=== PATIENT | male | born 1960 | race African-American/Black ===

== ENCOUNTER 2020-05-13 13:44 | Emergency (ER) | payer OTHER ==
[~2020-05-13] VITALS: Ht 188 cm; Wt 82.9 kg
[2020-05-13] MEDS ORDERED: SODIUM CHLORIDE FLUSH 10ML SYR IVF ONE (14:30)
[2020-05-13 14:38] LABS: BASOPHILS % (AUTO) 0 % (0-1); EOSINOPHILS % (AUTO) 0 % (1-7); LYMPHOCYTES % (AUTO) 16 % (22-44); MEAN CORPUSCULAR HEMOGLOBIN 26.4 pg (27.5-34.5); MEAN CORPUSCULAR HGB CONC 32.6 g/dL (33.2-36.2); MEAN PLATELET VOLUME 9.4 fL (7.4-10.4); MONOCYTES % (AUTO) 10 % (2-9); NEUTROPHILS % (AUTO) 73 % (42-75); RED BLOOD COUNT 5.49 x10^6/uL (4.38-5.82); RED CELL DISTRIBUTION WIDTH 14.1 % (9.4-14.8)
[2020-05-13 14:46] LABS: ALANINE AMINOTRANSFERASE 22 U/L (12-78); ALBUMIN 3.6 g/dL (3.4-5.0); ANION GAP 4 mmol/L (5-15); CALCIUM 9.4 mg/dL (8.5-10.1); CHLORIDE 105 mmol/L (98-107); CREATININE 1.53 mg/dL (0.7-1.3)
[2020-05-13 14:48] LABS: ALKALINE PHOSPHATASE 58 U/L (45-117); BILIRUBIN,TOTAL 0.5 mg/dL (0.2-1.0)
[2020-05-13 15:25] LABS: MD SCAN; PLATELET COUNT 193 x10^3/uL (130-400)
[2020-05-13] MEDS ORDERED: ONDANSETRON 2MG/ML, 2ML ONE (17:44)
[2020-05-13] MEDS ORDERED: LISI-170 PO (17:49)
--- NOTE | 2020-05-13 17:50 | NUR ---
PIV STARTED AND PT MEDICATED PER SEP. PT TO CT AT THIS TIME.
[2020-05-13] MEDS ORDERED: ATOR40TA78 PO (17:51)
[2020-05-13] MEDS ORDERED: LISI40TA PO (17:52)
[2020-05-13] MEDS ORDERED: FENO145T32 PO (17:54)
[2020-05-13] MEDS ORDERED: ASCO500C2 PO (17:55)
[2020-05-13] MEDS ORDERED: TADA5TAB2 PO (17:56)
[2020-05-13] MEDS ORDERED: ONDANSETRON 2MG/ML, 2ML IVPush ONE (18:00)
[2020-05-13] MEDS ORDERED: SODIUM CHLORIDE 0.9% 1,000ML IVBOLUS ONE ×2 (18:00→20:30)
[2020-05-13] MEDS ORDERED: OMNIPAQUE 350 MG/ML, 100ML BOTTLE ONE (18:00)
--- NOTE | 2020-05-13 18:55 | NUR ---
BEDSIDE REPORT FROM SATISH ARMENDARIZ ASSUMING CARE OF PT AT THIS TIME PT EDUCATED ON NEED FOR URINE SAMPLE, VERBALIZES UNDERSTANDING
--- NOTE | 2020-05-13 19:55 | NUR ---
PT UNABLE TO PROVIDE URINE SAMPLE AT THIS TIME. REQ WATER. WILL PROVIDE THIS
--- NOTE | 2020-05-13 20:08 | NUR ---
2ND LITER STARTED, PT REINFORMED OF NEED FOR URINE
--- NOTE | 2020-05-13 20:33 | NUR ---
URINE WALKED TO LAB
[2020-05-13 20:36] LABS: MICROSCOPIC NOT IND
[2020-05-13 21:05] VITALS: BP 112/66
== END 2020-05-13 21:27 | disposition home or self-care (01) ==
LOC: ED 16:30
DX: M48.56XA Collapsed vertebra, not elsewhere classified, lumbar region, initial encounter for fracture (principal); R10.84 Generalized abdominal pain; M54.5 Low back pain; R11.2 Nausea with vomiting, unspecified; I10 Essential (primary) hypertension; Z87.891 Personal history of nicotine dependence
CPT/HCPCS: 36415; 74177; 80053; 81003; 83690; 85025; 96361; 96374; 99285; J2405; J7030; Q9967